=== PATIENT | female | born 1985 ===

== ENCOUNTER 2017-11-11 03:55 | Emergency (ER) | payer BC ==
[~2017-11-11] VITALS: Ht 170.2 cm; Wt 68.0 kg
[~2017-11-11 03:55] MED LIST: JULEBER
--- NOTE | 2017-11-11 04:10 | NUR ---
PT CHECKED BACK IN TO BE SEEN AFTER REFUSING TREATMENT ROUGHLY 30 MINS EARLIER
[2017-11-11] MEDS ORDERED: OLANZAPINE 5 MG TABLET PO ONE (04:15)
[2017-11-11] MEDS ORDERED: LORAZEPAM 0.5 MG TABLET PO ONE (04:15)
[2017-11-11] MEDS ORDERED: OLANZAPINE 5 MG TABLET ONE (04:25)
[2017-11-11] MEDS ORDERED: LORAZEPAM 1 MG TABLET ONE (04:25)
--- NOTE | 2017-11-11 04:58 | NUR ---
PT IN BED RESTING. PT'S VISITOR AT BEDSIDE. PT IS CALM AND COOPERATIVE. PT'S BREATH SOUNDS ARE EVEN AND UNLABORED. PT ABLE TO AMBULATE UNASSISTED BACK AND FORTH TO RESTROOM. NO SIGNS OF DISTRESS WITNESSED AT THIS TIME.
--- NOTE | 2017-11-11 05:20 | NUR ---
Patient discharged to home in stable conditon. Written and verbal after care instructions given. Patient verbalizes understanding of instructions. Patient able to ambulate unassisted with a steady gait. Patient left with all personal belongings.
[2017-11-11 05:32] VITALS: BP 119/71
== END 2017-11-11 05:20 | disposition home or self-care (01) ==
LOC: ER 03:57
DX: F12.929 Cannabis use, unspecified with intoxication, unspecified (principal); F41.9 Anxiety disorder, unspecified
CPT/HCPCS: 36415; 84703; 99284; A4663